=== PATIENT | male | born 1985 | race Caucasian/White ===

== ENCOUNTER 2016-11-06 11:35 | Emergency (ER) | payer BC ==
[~2016-11-06] VITALS: Ht 170.2 cm; Wt 77.1 kg
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
--- NOTE | 2016-11-06 12:21 | NUR ---
TIM CARBAJAL AT BEDSIDE FOR EVAL.
[2016-11-06] MEDS ORDERED: OLANZAPINE 5 MG TABLET PO ONE (12:30)
[2016-11-06 12:52] LABS: APPEARANCE,URINE Clear (CLEAR); BILIRUBIN,URINE Negative (NEGATIVE); BLOOD, URINE Negative Ery/uL (NEGATIVE); COLOR,URINE Yellow (YELLOW); KETONES,URINE Negative (NEGATIVE); LEUKOCYTE ESTERASE ,URINE Negative (NEGATIVE); NITRITE, URINE Negative (NEGATIVE); PH,URINE 7.5 (5.0-8.0); PROTEIN,URINE Negative (NEGATIVE); UGLUCOSE Negative (NEGATIVE); UROBILINOGEN,URINE 0.2 EU/dL (0.2)
[2016-11-06 12:53] LABS: BASOPHILS % (AUTO) 0.6 % (0.0-2.0); EOSINOPHILS % (AUTO) 0.2 % (0.0-6.0); HEMATOCRIT 48 % (39-51); HEMOGLOBIN 15.4 g/dL (13.5-17.5); LYMPHOCYTES # (AUTO) 1.3 /CMM (0.8-4.8); LYMPHOCYTES % (AUTO) 15.8 % (20.0-44.0); MEAN CORPUSCULAR HEMOGLOBIN 30 PG (26.0-33.0); MEAN CORPUSCULAR HGB CONC 32 g/dl (31.0-36.0); MEAN CORPUSCULAR VOLUME 91 fL (80-96); MONOCYTES # (AUTO) 0.3 /CMM (0.1-1.30); MONOCYTES % (AUTO) 4.3 % (2.0-12.0); NEUTROPHILS # (AUTO) 6.3 /CMM (1.8-8.9); NEUTROPHILS % (AUTO) 79.1 % (43.0-81.0); PLATELET COUNT (AUTO) 292 /CMM (150-450); RDW COEFFICIENT OF VARIATION 12.3 (11.5-15.0); RED BLOOD CELL COUNT(AUTO) 5.21 MIL/uL (4.5-6.0); WHITE BLOOD COUNT (AUTO) 7.9 K/uL (4.3-11.0)
[2016-11-06] MEDS ORDERED: OLANZAPINE 5 MG TABLET ONE (12:54)
[2016-11-06 12:59] LABS: CANNABINOID, URINE NEGATIVE (NEGATIVE); PHENCYCLIDINE SCREEN,URINE NEGATIVE (NEGATIVE)
[2016-11-06 13:03] LABS: CALCIUM, SERUM 9.5 mg/dL (8.5-10.1); CARBON DIOXIDE 29 mmol/L (21-32); CHLORIDE 103 mmol/L (98-107); CREATININE 0.9 mg/dL (0.6-1.3); GFR 109 mL/min (>60); GLUCOSE 115 mg/dL (74-106); POTASSIUM 4.1 mmol/L (3.5-5.1); SODIUM SERUM 140 mmol/L (136-145); UREA NITROGEN, BLOOD 11 mg/dL (7-18)
[2016-11-06 13:09] LABS: ALANINE AMINOTRANSFERASE 24 U/L (12-78); ALBUMIN 4.4 g/dL (3.4-5.0); ALCOHOL, BLOOD < 3 mg/dL (0-0); ALKALINE PHOSPHATASE 76 U/L (46-116); ASPARTATE AMINOTRANSFERASE 17 U/L (15-37); BILIRUBIN,DIRECT 0.1 mg/dL (0.0-0.2); BILIRUBIN,TOTAL 0.3 mg/dL (0.2-1.0); TOTAL PROTEIN, SERUM 7.7 g/dL (6.4-8.2)
[2016-11-06 13:10] LABS: ACETAMINOPHEN 0 ug/ml (10-30); SALICYLATE 2.3 mg/dL (2.8-20.0)
--- NOTE | 2016-11-06 14:00 | NUR ---
CALLED [facility] THOMPSON FOR EVAL ETA 1 HOUR
--- NOTE | 2016-11-06 14:50 | NUR ---
DONNA RN AT BEDSIDE FOR PSYCH EVAL.
--- NOTE | 2016-11-06 15:30 | NUR ---
PT SLEEPING. APPEARS MORE RELAXED. EASILY AROUSABLE. RESTRAINT D/C'D. WILL MONITOR CLOSELY.
--- NOTE | 2016-11-06 18:58 | NUR ---
art parking meter mechanic at bedside for psych eval.
--- NOTE | 2016-11-06 19:40 | NUR ---
PER ART VICE INVESTIGATOR, PTS FACILITY WILL ARRANGE TRANSPORT BACK
--- NOTE | 2016-11-06 19:49 | NUR ---
PT GOING BACK TO FACILITY [facility] ETA 2100
--- NOTE | 2016-11-06 21:22 | NUR ---
FACILITY REP AT BEDSIDE. PT MEDICALLY AND PSYCH CLEARED. D/C IN STABLE CONDITION.
[2016-11-06 21:28] VITALS: BP 121/68
== END 2016-11-06 21:29 | disposition home or self-care (01) ==
LOC: ER 11:37 → EDBD 11:37 → ER 21:29
DX: R45.1 Restlessness and agitation (principal); R00.0 Tachycardia, unspecified; R20.9 Unspecified disturbances of skin sensation
CPT/HCPCS: 36415; 80048; 80076; 80305; 80329; 81001; 85025; 99284; A4606; G0480 ×2; Z7610; 81000-TC; G6039-TC